=== PATIENT | female | born 1955 | race Caucasian/White ===

== ENCOUNTER 2023-09-17 09:02 | Outpatient (CLI) | payer OTHER ==
[~2023-09-17 09:02] MED LIST: CRESTOR40 MG PO; DILT-XR120 MG PO; ELIQUIS5 MG PO; LEXAPRO20 MG PO; TAMS0.4C PO; ULTRAM50 MG PO
== END 2023-09-17 09:14 | disposition home or self-care (01) ==
LOC: RAD 09:02
DX: Z12.31 Encounter for screening mammogram for malignant neoplasm of breast (principal); Z12.39 Encounter for other screening for malignant neoplasm of breast; R05.9 Cough, unspecified

== ENCOUNTER → 2023-09-17 13:19 | Outpatient (CLI) | payer OTHER | END | disposition home or self-care (01) | LOC: NUCLEAR 13:19 | DX: M81.0 Age-related osteoporosis without current pathological fracture (principal) ==

== ENCOUNTER 2024-05-06 07:21 | Outpatient (CLI) | payer OTHER | END 2024-05-06 07:25 | disposition home or self-care (01) | LOC: RAD 07:21 | DX: I70.0 Atherosclerosis of aorta (principal) ==